=== PATIENT | male | born 1955 | race Caucasian/White ===

== ENCOUNTER → 2018-06-11 | Outpatient (REF) | payer BC ==
[2018-06-11 12:13] LABS: CHOLESTEROL LEVEL 182 MG/DL (<200); CHOLESTEROL RISK RATIO 4.789 (<5); HDL CHOLESTEROL 38 MG/DL (>40); LDL CHOLESTEROL 86 MG/DL (<100); NON-HDL-C 144 MG/DL; TRIGLYCERIDES LEVEL 290 MG/DL (<150)
[2018-06-11 12:19] LABS: ESTIMATED AVERAGE GLUCOSE 154 MG/DL (60-110)
== END ==
LOC: M SFHCCLAY 07:33
DX: E11.9 Type 2 diabetes mellitus without complications (principal); E78.2 Mixed hyperlipidemia
CPT/HCPCS: 84443

== ENCOUNTER → 2018-08-19 | Outpatient (CLI) | payer BC ==
[~2018-08-19] MED LIST: CINN500T PO; CLAR10CA3 PO; DIGO0.25 PO; FISH1000 PO; GLUC750C4 PO; METO1TAB33 PO; MULTCAP PO; NASA1SPR; OMEP20CA3 PO; REDCAP9 PO; VITA10006 PO; VITAD1000T PO; [UNRECOGNIZED DRUG - CODE] PO
--- NOTE | 2018-08-19 11:35 | REP ---
MR LUMBAR SPINE WITHOUT CONTRAST: HISTORY: Back pain. Decreased signal intensity on T2-weighted images is present in the L2-3 through L5-S1 intervertebral discs. The discs are decreased in height. These findings are consistent with disc degeneration. A diffuse disc bulge is present at the L1-2 level. There is minimal compression of the thecal sac. There is hypertrophy of the ligamenta flava and posterior articulating facets. The L1 nerves exit the neural foramina without compression. A diffuse disc bulge and small right paracentral disc extrusion are present at the L2-3 level. There is superior migration of disc material. There is hypertrophy of the ligamenta flava and posterior articulating facets. These findings produce moderate central canal stenosis. The L2 nerves exit the neural foramina without compression. A diffuse disc bulge is present at the L3-4 level. There is hypertrophy of the ligamenta flava and posterior articulating facets. These findings produce moderate central canal stenosis. The L3 nerves exit the neural foramina without compression. A diffuse disc bulge and small central disc protrusion are present at the L4-5 level. There is minimal compression of the thecal sac. There is hypertrophy of the posterior articulating facets. There is compression of the left L4 nerve in the neural foramen. The right L4 nerve exits the neural foramen without compression. A diffuse disc bulge is present at the L5-S1 level. This abuts the thecal sac and S1 nerves. There are 3 mm of retrolisthesis of L5 on S1. There is hypertrophy of the posterior articulating facets. There is compression of the L5 nerves in the neural foramina. The conus medullaris is normal in appearance terminating at the level of the L1-2 intervertebral disc. Increased signal intensity on T2-weighted images is present in the endplates of the L4-S1 vertebral bodies. This represents degenerative change. IMPRESSION: 1. Diffuse disc bulges at the L1-2 level with minimal thecal sac compression. 2. Moderate central canal stenosis at the L2-3 level secondary to disc bulge, disc extrusion, ligamentous, and facet hypertrophy. 3. Moderate central canal stenosis at the L3-4 level secondary to disc bulge, ligamentous, and facet hypertrophy. 4. Diffuse disc bulge and small central disc protrusion at the L4-5 level with minimal thecal sac compression. There is compression of the left L4 nerve in the neural foramen. 5. Diffuse disc bulge at the L5-S1 level. This abuts the thecal sac and S1 nerves. There is compression of the L5 nerves in the neural foramina. Electronically Signed by Reji Davis MD 08/19/2018 11:39 A
== END ==
LOC: M RAD 09:36
PROVIDERS: ATTEND Orthopaedic Surgery
DX: M51.26 Other intervertebral disc displacement, lumbar region (principal); M48.061 Spinal stenosis, lumbar region without neurogenic claudication

== ENCOUNTER → 2018-12-11 | Outpatient (REF) | payer BC ==
[2018-12-11 13:00] LABS: MALB URINE SIEMENS 35.5 MG/L; MAU/CREAT RATIO 14.6 MCG/MG (0.0-30.0)
[2018-12-11 13:04] LABS: HEMOGLOBIN A1c 7.3 %
== END ==
LOC: M SFHCCLAY 09:10
PROVIDERS: ATTEND Family Medicine
DX: E11.9 Type 2 diabetes mellitus without complications (principal); I10 Essential (primary) hypertension

== ENCOUNTER 2019-01-20 07:25 | Day surgery (SDC) | payer BC ==
[~2019-01-20] VITALS: Ht 188 cm; Wt 101.6 kg
[~2019-01-20 07:25] MED LIST changes: +CINN500C15 PO; +GARL500C PO; +GNP1000T11 PO; +KP F1200 PO; +METF500T13 PO; +VITA500C24 PO
[2019-01-20] MEDS ORDERED: NS 1,000 ML IV ONE (08:00)
[2019-01-20] MEDS ORDERED: LIDOCAINE 2% INJ 100 MG/5 ML SDV (FOR ANES.) As Ordered ONE (08:26)
[2019-01-20] MEDS ORDERED: PROPOFOL 500 MG/50 ML VIAL As Ordered ONE (08:26)
--- NOTE | 2019-01-20 08:51 | ROOR ---
Patient Name: Travon Costello Procedure Date: 01/20/2019 8:22 AM Date of : 1955 Age: 63 Room: [facility] Gender: Male Note Status: Finalized Procedure: Colonoscopy Indications: High risk colon cancer surveillance: Personal history of colonic polyps, Last colonoscopy: October 2015 Providers: Rodrigo HALL MD Referring MD: Varun Valdez MD Requesting Provider: Medicines: Monitored Anesthesia Care Complications: No immediate complications. Procedure: Pre-Anesthesia Assessment: - The heart rate, respiratory rate, oxygen saturations, blood pressure, adequacy of pulmonary ventilation, and response to care were monitored throughout the procedure. The Colonoscope was introduced through the anus and advanced to the terminal ileum, with identification of the appendiceal orifice and IC valve. The colonoscopy was performed without difficulty. The patient tolerated the procedure well. The quality of the bowel preparation was good. Findings: The perianal and digital rectal examinations were normal. Two sessile polyps were found in the sigmoid colon. The polyps were diminutive in size. These polyps were removed with a cold snare. Resection and retrieval were complete. Mild sigmoid diverticulosis and moderate internal hemorrhoids. The exam was otherwise without abnormality on direct and retroflexion views. (Exam: Complete, Prep: Good or Excellent.) Impression: - Two diminutive polyps in the sigmoid colon, removed with a cold snare. Resected and retrieved. - Mild sigmoid diverticulosis and moderate internal hemorrhoids. - The colon examination was otherwise normal on direct and retroflexion views. Recommendation: - Repeat colonoscopy in 5 years for surveillance. Rodrigo Hall MD Rodrigo HALL MD 01/20/2019 8:51:04 AM Electronically signed by Rodrigo HALL MD Number of Addenda: 0 Note Initiated On: 01/20/2019 8:22 AM Estimated Blood Loss: Estimated blood loss: none.
[2019-01-20 09:10] VITALS: BP 135/83
== END 2019-01-20 09:17 | disposition home or self-care (01) ==
LOC: M OPP 07:25
PROVIDERS: ATTEND Internal Medicine Gastroenterology
DX: D12.5 Benign neoplasm of sigmoid colon (principal); K63.5 Polyp of colon; K57.30 Diverticulosis of large intestine without perforation or abscess without bleeding; K64.8 Other hemorrhoids; Z86.010 Personal history of colon polyps

== ENCOUNTER → 2020-06-10 | Outpatient (REF) | payer BC ==
[~2020-06-10] MED LIST changes: +CHOL100029 PO; +DIGO0.253 PO; -GARL500C PO; +GARL500C2 PO; +OMEP1CAP73 PO; -OMEP20CA3 PO; -VITAD1000T PO
[2020-06-10 12:06] LABS: HEMATOCRIT 43.1 % (42.0-52.0); HEMOGLOBIN 14.6 g/dl (13.5-17.5); MEAN CORPUSCULAR HGB CONC 33.9 g/dl (32.0-36.5); MEAN CORPUSCULAR VOLUME 94.5 fl (80.0-96.0); PLATELET COUNT, AUTOMATED 139 10^3/uL (150-450); RED BLOOD COUNT 4.56 10^6/uL (4.30-6.10); WHITE BLOOD COUNT 5.1 10^3/uL (4.0-10.0)
[2020-06-10 12:39] LABS: MALB URINE SIEMENS 17.3 MG/L; MAU/CREAT RATIO 10.6 MCG/MG (0.0-30.0)
[2020-06-10 12:44] LABS: ALBUMIN 3.9 GM/DL (3.2-5.2); ALT/SGPT 43 U/L (12-78); BILIRUBIN,TOTAL 0.8 MG/DL (0.2-1.0); BLOOD UREA NITROGEN 16 MG/DL (7-18); CARBON DIOXIDE LEVEL 31 MEQ/L (21-32); CHLORIDE LEVEL 103 MEQ/L (98-107); CHOLESTEROL LEVEL 187 MG/DL (<200); CHOLESTEROL RISK RATIO 3.978 (<5); CREATININE FOR GFR 1.09 MG/DL (0.70-1.30); GLOMERULAR FILTRATION RATE > 60.0 (>49); GLUCOSE, FASTING 131 MG/DL (70-100); HDL CHOLESTEROL 47 MG/DL (>40); LDL CHOLESTEROL 104 MG/DL (<100); NON-HDL-C 140 MG/DL; POTASSIUM SERUM 4.3 MEQ/L (3.5-5.1); SODIUM LEVEL 139 MEQ/L (136-145); TOTAL PROTEIN 7.7 GM/DL (6.4-8.2); TRIGLYCERIDES LEVEL 181 MG/DL (<150)
[2020-06-10 13:31] LABS: HEMOGLOBIN A1c 6.6 %
== END ==
LOC: M SFHCCLAY 08:06
PROVIDERS: ATTEND Family Medicine
DX: D61.818 Other pancytopenia (principal); E78.2 Mixed hyperlipidemia; I47.1 Supraventricular tachycardia; Z12.5 Encounter for screening for malignant neoplasm of prostate; E11.9 Type 2 diabetes mellitus without complications
CPT/HCPCS: 80053; 80061; 80162; 82043; 83036; 85027; G0103

== ENCOUNTER → 2021-07-06 | Outpatient (REF) | payer BC ==
[2021-07-06 11:55] LABS: BASO # 0.1 10^3/uL (0.0-0.2); BASO % 1.1 % (0.0-1.0); EOS # 0.4 10^3/uL (0.0-0.5); EOS % 7.1 % (0.0-3.0); HEMATOCRIT 43.7 % (42.0-52.0); HEMOGLOBIN 14.9 g/dl (13.5-17.5); LYMPH # 2.2 10^3/uL (1.5-5.0); LYMPH % 40.2 % (24.0-44.0); MEAN CORPUSCULAR HEMOGLOBIN 32.3 pg (27.0-33.0); MEAN CORPUSCULAR HGB CONC 34.1 g/dl (32.0-36.5); MEAN CORPUSCULAR VOLUME 94.6 fl (80.0-96.0); MONO # 0.6 10^3/uL (0.0-0.8); MONO % 11.7 % (2.0-8.0); NEUTROPHILS # 2.2 10^3/uL (1.5-8.5); NEUTROPHILS % 39.7 % (36.0-66.0); PLATELET COUNT, AUTOMATED 139 10^3/uL (150-450); RED BLOOD COUNT 4.62 10^6/uL (4.30-6.10); WHITE BLOOD COUNT 5.5 10^3/uL (4.0-10.0)
[2021-07-06 12:39] LABS: ALBUMIN 3.8 GM/DL (3.2-5.2); ALT/SGPT 50 U/L (12-78); BILIRUBIN,TOTAL 0.8 MG/DL (0.2-1.0); BLOOD UREA NITROGEN 15 MG/DL (7-18); CALCIUM LEVEL 9.6 MG/DL (8.8-10.2); CARBON DIOXIDE LEVEL 29 MEQ/L (21-32); CHLORIDE LEVEL 102 MEQ/L (98-107); CHOLESTEROL LEVEL 179 MG/DL (<200); CHOLESTEROL RISK RATIO 4.162 (<5); CREATININE FOR GFR 1.21 MG/DL (0.70-1.30); GLOMERULAR FILTRATION RATE > 60.0 (>49); GLUCOSE, FASTING 152 MG/DL (70-100); HDL CHOLESTEROL 43 MG/DL (>40); LDL CHOLESTEROL 99 MG/DL (<100); NON-HDL-C 136 MG/DL; POTASSIUM SERUM 4.6 MEQ/L (3.5-5.1); SODIUM LEVEL 138 MEQ/L (136-145); TOTAL PROTEIN 7.9 GM/DL (6.4-8.2); TRIGLYCERIDES LEVEL 185 MG/DL (<150)
[2021-07-06 12:52] LABS: MALB URINE SIEMENS 35.4 MG/L; MAU/CREAT RATIO 12.8 MCG/MG (0.0-30.0)
[2021-07-06 14:43] LABS: DIGOXIN LEVEL 1.4 NG/ML (0.5-2.0)
== END ==
LOC: M SFHCCLAY 07:33
PROVIDERS: ATTEND Family Medicine
DX: D61.818 Other pancytopenia (principal); I10 Essential (primary) hypertension; E78.2 Mixed hyperlipidemia; I47.1 Supraventricular tachycardia; Z12.5 Encounter for screening for malignant neoplasm of prostate; E11.9 Type 2 diabetes mellitus without complications
CPT/HCPCS: 80053; 80061; 80162; 82043; 83036; 85025; G0103

== ENCOUNTER 2021-07-13 12:26 | Emergency (ER) | payer BC ==
[~2021-07-13] VITALS: Ht 188 cm; Wt 101.8 kg
[2021-07-13 13:03] LABS: HEMATOCRIT 41.5 % (42.0-52.0); HEMOGLOBIN 14.5 g/dl (13.5-17.5); MEAN CORPUSCULAR HEMOGLOBIN 32.4 pg (27.0-33.0); MEAN CORPUSCULAR HGB CONC 34.9 g/dl (32.0-36.5); MEAN CORPUSCULAR VOLUME 92.6 fl (80.0-96.0); PLATELET COUNT, AUTOMATED 141 10^3/uL (150-450); RED BLOOD COUNT 4.48 10^6/uL (4.30-6.10); WHITE BLOOD COUNT 6.2 10^3/uL (4.0-10.0)
[2021-07-13] MEDS ORDERED: BENA1TAB24 (13:06)
--- NOTE | 2021-07-13 13:07 | REP ---
INDICATION: palpaitaions. COMPARISON: 01/23/2013 the latest prior TECHNIQUE: Portable FINDINGS: The technique utilized in obtaining the radiograph has magnified the cardiac silhouette and accentuated the interstitial markings. The cardiomediastinal silhouette lung león are unchanged. The heart is not enlarged. The lung león are clear. The pleural angles are sharp. The osseous structures are stable and intact. IMPRESSION: No acute cardiopulmonary disease. <Electronically signed by Cristiano Mendez > 07/13/21 [id number]
[2021-07-13 14:27] LABS: BLOOD UREA NITROGEN 12 MG/DL (7-18); CALCIUM LEVEL 9.1 MG/DL (8.8-10.2); CARBON DIOXIDE LEVEL 26 MEQ/L (21-32); CHLORIDE LEVEL 107 MEQ/L (98-107); CREATININE FOR GFR 1.17 MG/DL (0.70-1.30); DIGOXIN LEVEL 0.7 NG/ML (0.5-2.0); FREE THYROXINE INDEX 3.6 % (1.4-3.8); GLOMERULAR FILTRATION RATE > 60.0 (>49); GLUCOSE, FASTING 188 MG/DL (70-100); SODIUM LEVEL 140 MEQ/L (136-145); T UPTAKE 36 % (33-40); THYROID STIMULATING HORMONE 0.372 uIU/ML (0.358-3.740); THYROXINE (T4) 9.9 UG/DL (4.5-12.0)
[2021-07-13] MEDS ORDERED: atenoloL 25 MG TAB PO ONE ×2 (14:30→16:20)
[2021-07-13] MEDS ORDERED: ATEN50TA2 PO (16:24)
[2021-07-13 17:43] VITALS: BP 140/86
[2021-07-13 17:46] VITALS: BP 140/86
--- NOTE | 2021-07-14 07:48 | ECGEPIP ---
[facility] - ED Test Date: 2021-07-13 Pat Name: SIMONE FERRER Department: Room: - Gender: Male [employer] Tender: RAKEL : 1955 Requested By: Hillary Katz Order Number: [id number] Reading MD: Devan Paulson Measurements Intervals Oblong Rate: 115 P: 40 IN: 176 QRS: 8 QRSD: 92 T: 6 QT: 328 QTc: 453 Interpretive Statements Sinus tachycardia POOR R WAVE PROGRESSION NO PRIORS FOR COMPARISON Electronically Signed on 07-14-2021 7:48:44 EST by Devan Paulson
== END 2021-07-13 17:50 | disposition home or self-care (01) ==
LOC: M ED 12:26 → EDBD 12:26 → M ED 17:50
DX: I47.9 Paroxysmal tachycardia, unspecified (principal); K21.9 Gastro-esophageal reflux disease without esophagitis; Z88.0 Allergy status to penicillin; Z79.899 Other long term (current) drug therapy

== ENCOUNTER → 2021-11-20 | Outpatient (REF) | payer BC ==
[~2021-11-20] MED LIST changes: +ATEN50TA2 PO; +BENA1TAB24
[2021-11-20 16:35] LABS: ALBUMIN 3.9 GM/DL (3.2-5.2); BLOOD UREA NITROGEN 18 MG/DL (7-18); CALCIUM LEVEL 9.9 MG/DL (8.8-10.2); CARBON DIOXIDE LEVEL 32 MEQ/L (21-32); CHLORIDE LEVEL 101 MEQ/L (98-107); CREATININE FOR GFR 1.25 MG/DL (0.70-1.30); GLOMERULAR FILTRATION RATE > 60.0 (>49); GLUCOSE, FASTING 291 MG/DL (70-100); PHOSPHORUS LEVEL 2.6 MG/DL (2.5-4.9); POTASSIUM SERUM 4.2 MEQ/L (3.5-5.1); SODIUM LEVEL 137 MEQ/L (136-145)
== END ==
LOC: M LABDRAWC 15:32
PROVIDERS: ATTEND Internal Medicine Cardiovascular Disease
DX: I11.9 Hypertensive heart disease without heart failure (principal)

== ENCOUNTER 2021-11-27 06:31 | Inpatient (IN) | payer BC ==
[~2021-11-27] VITALS: Ht 188 cm; Wt 102.7 kg
[~2021-11-27 06:31] MED LIST changes: -BENA1TAB24; +BENA1TAB24 PO; -NASA1SPR; +NASA1SPR NARES
[2021-11-27] MEDS ORDERED: ACETAMINOPHEN TAB 650MG DOSE (2X325MG) PO ONE (07:30)
[2021-11-27] MEDS ORDERED: ONDANSETRON 4MG/2ML VIAL IV ONE ×2 (07:40→13:30)
[2021-11-27] MEDS ORDERED: NS 1,000 ML IV ONE (07:40)
[2021-11-27] MEDS ORDERED: ONDANSETRON 4MG/2ML VIAL As Ordered ONE (07:41)
[2021-11-27] MEDS ORDERED: SPIR-10 PO (07:50)
[2021-11-27] MEDS ORDERED: CHLO125TA PO (07:51)
[2021-11-27] MEDS: MORPHINE 4 MG/ML 1ML VIAL/SYRINGE IV PRN ×4 (08:07→20:08)
[2021-11-27 08:23] LABS: BASO % 0.4 % (0.0-1.0); EOS # 0.1 10^3/uL (0.0-0.5); EOS % 0.6 % (0.0-3.0); HEMOGLOBIN 14.8 g/dl (13.5-17.5); LYMPH # 1.3 10^3/uL (1.5-5.0); LYMPH % 11.5 % (24.0-44.0); MEAN CORPUSCULAR HEMOGLOBIN 31.8 pg (27.0-33.0); MEAN CORPUSCULAR HGB CONC 36.1 g/dl (32.0-36.5); MONO # 0.3 10^3/uL (0.0-0.8); MONO % 2.6 % (2.0-8.0); NEUTROPHILS # 9.2 10^3/uL (1.5-8.5); NEUTROPHILS % 84.2 % (36.0-66.0); PLATELET COUNT, AUTOMATED 119 10^3/uL (150-450); RED BLOOD COUNT 4.66 10^6/uL (4.30-6.10); WHITE BLOOD COUNT 10.9 10^3/uL (4.0-10.0)
[2021-11-27 08:24] LABS: ABG BASE EXCESS -1.9 (-2.0-2.0); ABG O2 SATURATION 95.8 % (95.0-99.0); ABG PARTIAL PRESSURE CO2 39.9 mmHg (35.0-45.0); ABG PARTIAL PRESSURE O2 82.9 mmHg (75.0-100.0); ABG STANDARD HCO3 22.9 MEQ/L (22.0-26.0); ABG TOTAL CO2 24.2 MEQ/L (23.0-31.0); ABG pH (ARTERIAL) 7.379 UNITS (7.350-7.450)
[2021-11-27 08:35] LABS: INR 0.95; PROTHROMBIN TIME 13.1 SECONDS (12.7-14.5)
[2021-11-27 08:36] LABS: PARTIAL THROMBOPLASTIN TIME 21.8 SECONDS (25.9-37.0)
[2021-11-27 08:41] LABS: ALBUMIN 3.7 GM/DL (3.2-5.2); ALT/SGPT 85 U/L (12-78); AMYLASE 42 U/L (25-115); BILIRUBIN,DIRECT 0.5 MG/DL (0.0-0.2); BILIRUBIN,TOTAL 1.1 MG/DL (0.2-1.0); BLOOD UREA NITROGEN 18 MG/DL (7-18); C REACTIVE PROTEIN QUANTITATIV 4.46 MG/DL (0.00-0.30); CALCIUM LEVEL 9.2 MG/DL (8.8-10.2); CARBON DIOXIDE LEVEL 26 MEQ/L (21-32); CHLORIDE LEVEL 101 MEQ/L (98-107); CREATININE FOR GFR 1.26 MG/DL (0.70-1.30); GLOMERULAR FILTRATION RATE > 60.0 (>49); GLUCOSE, FASTING 285 MG/DL (70-100); POTASSIUM SERUM 4.5 MEQ/L (3.5-5.1); SODIUM LEVEL 136 MEQ/L (136-145); TOTAL PROTEIN 7.7 GM/DL (6.4-8.2)
[2021-11-27 08:47] LABS: ERYTHROCYTE SEDIMENTATION RATE 31 mm/hr (0-20)
[2021-11-27] MEDS: VITAMIN D 1,000 INTERNATIONAL UNITS TABLET PO SCH (09:00)
[2021-11-27] MEDS: LORATADINE 10 MG TAB PO SCH (09:00)
[2021-11-27] MEDS: ASCORBIC ACID 500 MG TAB PO SCH (09:00)
[2021-11-27] MEDS: ENOXAPARIN 40MG/0.4ML SYRINGE (J1650 PER 10MG) SC SCH (09:00)
[2021-11-27] MEDS ORDERED: LevoFLOXacin IV 750 MG in IV 1 EA IV ONE (09:00)
[2021-11-27] MEDS ORDERED: NS IV ONE (09:00)
[2021-11-27] MEDS: MULTIVITAMINS/MINERALS THERAP 1 TAB PO SCH (09:00)
[2021-11-27 09:03] LABS: RSV AMPLIFICATION NEGATIVE (NEGATIVE)
[2021-11-27] MEDS ORDERED: ISOVUE-370 76% 100ML VIAL As Ordered ONE (09:27)
[2021-11-27 11:20] LABS: APPEARANCE, URINE HAZY (CLEAR); BACTERIA, URINE AUTO NEGATIVE (NEGATIVE); BILIRUBIN, URINE AUTO NEGATIVE (NEGATIVE); BLOOD, URINE BLOOD NEGATIVE (NEGATIVE); COLOR, URINE YELLOW (YELLOW); GLUCOSE, URINE (UA) AUTO 3+ mg/dL (NEGATIVE); KETONE, URINE AUTO TRACE mg/dL (NEGATIVE); LEUKOCYTE ESTERASE, URINE AUTO NEGATIVE (NEGATIVE); MUCUS, URINE LARGE (NEGATIVE); NITRITE, URINE AUTO NEGATIVE (NEGATIVE); PROTEIN, URINE AUTO 1+ mg/dL (NEGATIVE); RBC, URINE AUTO 6 /HPF (0-3); SQUAMOUS EPITHELIAL CELL UR AU 0 /HPF (0-6); UROBILINOGEN, URINE AUTO 0.2 mg/dL (0.0-2.0); WBC, URINE AUTO 2 /HPF (0-3)
[2021-11-27] MEDS ORDERED: PROHANCE 279.3MG/ML 15ML VIAL As Ordered ONE (12:34)
[2021-11-27] MEDS ORDERED: PROHANCE 279.3MG/ML 5ML VIAL As Ordered ONE (12:34)
[2021-11-27] MEDS ORDERED: ATEN50TA2 PO (14:17)
[2021-11-27] MEDS ORDERED: VITMTA PO (14:21)
[2021-11-27] MEDS ORDERED: VITA100093 PO (14:24)
[2021-11-27] MEDS ORDERED: HOME MED LIST COMPLETE! XX SCH (14:30)
[2021-11-27] MEDS ORDERED: GLUCAGON INJ 1MG VIAL SC PRN (16:20)
[2021-11-27] MEDS ORDERED: DEXTROSE 50% 50 ML SYRINGE IV PRN (16:20)
[2021-11-27] MEDS ORDERED: GLUCOSE 4GM CHEW TABLET PO PRN (16:20)
[2021-11-27] MEDS: oxyCODONE 5MG TAB PO PRN (16:32)
[2021-11-27] MEDS: traMADol 50 MG TAB PO PRN (17:36)
[2021-11-27] MEDS: NS 1,000 ML IV SCH (18:55)
[2021-11-27] MEDS: CYCLOBENZAPRINE 5MG TABLET PO PRN (18:56)
[2021-11-27 19:14] LABS: LDH LACTATE DEHYDROGENASE 165 U/L (87-241); RHEUMATOID FACTOR QUANT 15.1 IU/ML (<15.0); TOTAL PROTEIN 6.8 GM/DL (6.4-8.2)
[2021-11-27] MEDS: ACETAMINOPHEN TAB 650MG DOSE (2X325MG) PO SCH (20:07)
[2021-11-27] MEDS: HumaLOG INSULIN (NovoLOG) PER UNIT SC SCH ×2 (20:09→20:58)
[2021-11-27] MEDS: DIGOXIN 0.25 MG TAB PO SCH (21:02)
[2021-11-27] MEDS: OMEPRAZOLE 20MG CAP PO SCH (21:02)
[2021-11-27] MEDS: atenoloL 50 MG TAB PO SCH (21:02)
[2021-11-28 00:55] VITALS: BP 140/73
[2021-11-28] MEDS: ACETAMINOPHEN TAB 650MG DOSE (2X325MG) PO SCH ×5 (01:09→23:07)
[2021-11-28] MEDS: oxyCODONE 5MG TAB PO PRN ×2 (01:09→14:22)
[2021-11-28] MEDS: NS 1,000 ML IV SCH ×2 (04:40→13:08)
[2021-11-28] MEDS: PERCOCET 5MG/325MG TAB PO PRN (04:41)
[2021-11-28 05:45] VITALS: BP 132/72
[2021-11-28 06:39] LABS: ALT/SGPT 76 U/L (12-78); BILIRUBIN,TOTAL 1.2 MG/DL (0.2-1.0); BLOOD UREA NITROGEN 14 MG/DL (7-18); CARBON DIOXIDE LEVEL 27 MEQ/L (21-32); CHLORIDE LEVEL 101 MEQ/L (98-107); CREATININE FOR GFR 0.96 MG/DL (0.70-1.30); GLOMERULAR FILTRATION RATE > 60.0 (>49); GLUCOSE, FASTING 197 MG/DL (70-100); POTASSIUM SERUM 3.8 MEQ/L (3.5-5.1); SODIUM LEVEL 136 MEQ/L (136-145); TOTAL PROTEIN 6.3 GM/DL (6.4-8.2)
[2021-11-28] MEDS: OMEPRAZOLE 20MG CAP PO SCH ×2 (08:29→20:25)
[2021-11-28] MEDS: ASCORBIC ACID 500 MG TAB PO SCH (08:29)
[2021-11-28] MEDS: LIDOCAINE 5% (LIDODERM) PATCH TD SCH (08:29)
[2021-11-28] MEDS: MULTIVITAMINS/MINERALS THERAP 1 TAB PO SCH (08:29)
[2021-11-28] MEDS: LORATADINE 10 MG TAB PO SCH (08:29)
[2021-11-28] MEDS: VITAMIN D 1,000 INTERNATIONAL UNITS TABLET PO SCH (08:30)
[2021-11-28] MEDS: HumaLOG INSULIN (NovoLOG) PER UNIT SC SCH ×4 (08:32→21:00)
[2021-11-28] MEDS: ENOXAPARIN 40MG/0.4ML SYRINGE (J1650 PER 10MG) SC SCH (09:00)
[2021-11-28 10:20] LABS: ALBUMIN 3.66 GM/DL (3.29-5.55); ALBUMIN % 53.8 % (55.8-66.1); ALPHA-1-GLOBULIN % 4.6 % (2.9-4.9); ALPHA-1-GLOBULINS 0.31 GM/DL (0.17-0.41); ALPHA-2-GLOBULINS 0.74 GM/DL (0.42-0.99); ALPHA-2-GLOBULINS % 10.5 % (7.1-11.8); BETA-1-GLOBULINS 0.58 GM/DL (0.28-0.60); BETA-1-GLOBULINS % 8.5 % (4.7-7.2); BETA-2-GLOBULINS 0.51 GM/DL (0.19-0.55); BETA-2-GLOBULINS % 7.5 % (3.2-6.5); GAMMA GLOBULIN % 15.1 % (11.1-18.8); GAMMA GLOBULINS 1.03 GM/DL (0.65-1.58)
[2021-11-28] MEDS ORDERED: VANCOMYCIN HCL 1,000 MG, VIAL MATE ADAPTER 1 EACH in NS 250 ML IV ONE ×2 (11:00→12:00)
[2021-11-28 11:03] LABS: HEMATOCRIT 35.3 % (42.0-52.0); HEMOGLOBIN 12.2 g/dl (13.5-17.5); MEAN CORPUSCULAR HEMOGLOBIN 31.4 pg (27.0-33.0); MEAN CORPUSCULAR HGB CONC 34.6 g/dl (32.0-36.5); RED BLOOD COUNT 3.88 10^6/uL (4.30-6.10); WHITE BLOOD COUNT 12.3 10^3/uL (4.0-10.0)
[2021-11-28 11:05] LABS: PLATELET COUNT, AUTOMATED 93 10^3/uL (150-450)
[2021-11-28 14:00] VITALS: BP 132/72
[2021-11-28] MEDS: traMADol 50 MG TAB PO PRN ×3 (16:06→17:09)
[2021-11-28] MEDS: CYCLOBENZAPRINE 5MG TABLET PO PRN (17:42)
[2021-11-28 19:30] VITALS: BP 118/68
[2021-11-28] MEDS: VANCOMYCIN HCL 750 MG, VIAL MATE ADAPTER 1 EACH in NS 250 ML IV SCH (20:25)
[2021-11-28] MEDS: DIGOXIN 0.25 MG TAB PO SCH (20:27)
[2021-11-28] MEDS: **NOTE PATIENT COMMENT** MISC XX SCH (20:27)
[2021-11-28] MEDS: atenoloL 50 MG TAB PO SCH (20:27)
[2021-11-29] MEDS: traMADol 50 MG TAB PO PRN (01:42)
[2021-11-29] MEDS ORDERED: MOM 30ML SUSPENSION UDC PO PRN (02:25)
[2021-11-29] MEDS ORDERED: DOCUSATE SODIUM 100MG CAPSULE PO PRN (02:25)
[2021-11-29] MEDS ORDERED: MIRALAX *UNIT DOSE* 17GM PACKET PO PRN (02:25)
[2021-11-29] MEDS: VANCOMYCIN HCL 750 MG, VIAL MATE ADAPTER 1 EACH in NS 250 ML IV SCH (03:47)
[2021-11-29] MEDS ORDERED: ONDANSETRON 4MG ORAL DISINTEGRATING TAB PO PRN (04:00)
[2021-11-29] MEDS: ACETAMINOPHEN TAB 650MG DOSE (2X325MG) PO SCH ×4 (05:07→23:07)
[2021-11-29 05:20] VITALS: BP 134/74
[2021-11-29 07:03] LABS: HEMATOCRIT 35.7 % (42.0-52.0); HEMOGLOBIN 12.5 g/dl (13.5-17.5); MEAN CORPUSCULAR HEMOGLOBIN 31.3 pg (27.0-33.0); MEAN CORPUSCULAR VOLUME 89.5 fl (80.0-96.0); RED BLOOD COUNT 3.99 10^6/uL (4.30-6.10); WHITE BLOOD COUNT 10.5 10^3/uL (4.0-10.0)
[2021-11-29 07:06] LABS: PLATELET COUNT, AUTOMATED 86 10^3/uL (150-450)
[2021-11-29 07:33] LABS: ALBUMIN 2.6 GM/DL (3.2-5.2); ALT/SGPT 66 U/L (12-78); BILIRUBIN,TOTAL 0.9 MG/DL (0.2-1.0); BLOOD UREA NITROGEN 11 MG/DL (7-18); CARBON DIOXIDE LEVEL 28 MEQ/L (21-32); CHLORIDE LEVEL 101 MEQ/L (98-107); CREATININE FOR GFR 0.83 MG/DL (0.70-1.30); GLOMERULAR FILTRATION RATE > 60.0 (>49); GLUCOSE, FASTING 199 MG/DL (70-100); SODIUM LEVEL 135 MEQ/L (136-145); TOTAL PROTEIN 6.1 GM/DL (6.4-8.2)
[2021-11-29] MEDS ORDERED: cefTRIAXone SOD 2 GM in D5W MINI-BAG PLUS 50 ML IV SCH (08:35)
[2021-11-29] MEDS ORDERED: ENOXAPARIN 40MG/0.4ML SYRINGE (J1650 PER 10MG) SC SCH (09:00)
[2021-11-29] MEDS: OMEPRAZOLE 20MG CAP PO SCH ×2 (09:05→19:59)
[2021-11-29] MEDS: MULTIVITAMINS/MINERALS THERAP 1 TAB PO SCH (09:05)
[2021-11-29] MEDS: cefTRIAXone SOD 2 GM in D5W MINI-BAG PLUS 50 ML IV SCH ×2 (09:06→20:00)
[2021-11-29] MEDS: LORATADINE 10 MG TAB PO SCH (09:06)
[2021-11-29] MEDS: ASCORBIC ACID 500 MG TAB PO SCH (09:06)
[2021-11-29] MEDS: VITAMIN D 1,000 INTERNATIONAL UNITS TABLET PO SCH (09:06)
[2021-11-29] MEDS: HumaLOG INSULIN (NovoLOG) PER UNIT SC SCH ×4 (09:07→19:59)
[2021-11-29] MEDS: LIDOCAINE 5% (LIDODERM) PATCH TD SCH (09:10)
[2021-11-29 14:00] VITALS: BP 148/76
[2021-11-29] MEDS: oxyCODONE 5MG TAB PO PRN (16:38)
[2021-11-29] MEDS: DIGOXIN 0.25 MG TAB PO SCH (19:59)
[2021-11-29] MEDS: atenoloL 50 MG TAB PO SCH (19:59)
[2021-11-29] MEDS: **NOTE PATIENT COMMENT** MISC XX SCH (20:02)
[2021-11-29 22:00] VITALS: BP 126/69
[2021-11-30 04:54] VITALS: BP 133/74
[2021-11-30] MEDS: ACETAMINOPHEN TAB 650MG DOSE (2X325MG) PO SCH ×4 (05:05→23:57)
[2021-11-30 06:50] LABS: HEMATOCRIT 33.7 % (42.0-52.0); HEMOGLOBIN 11.9 g/dl (13.5-17.5); MEAN CORPUSCULAR HEMOGLOBIN 31.9 pg (27.0-33.0); MEAN CORPUSCULAR HGB CONC 35.3 g/dl (32.0-36.5); MEAN CORPUSCULAR VOLUME 90.3 fl (80.0-96.0); RED BLOOD COUNT 3.73 10^6/uL (4.30-6.10); WHITE BLOOD COUNT 8.5 10^3/uL (4.0-10.0)
[2021-11-30 06:52] LABS: PLATELET COUNT, AUTOMATED 98 10^3/uL (150-450)
[2021-11-30 07:24] LABS: ALBUMIN 2.6 GM/DL (3.2-5.2); ALT/SGPT 52 U/L (12-78); BILIRUBIN,TOTAL 0.7 MG/DL (0.2-1.0); BLOOD UREA NITROGEN 12 MG/DL (7-18); CALCIUM LEVEL 8.6 MG/DL (8.8-10.2); CARBON DIOXIDE LEVEL 31 MEQ/L (21-32); CHLORIDE LEVEL 101 MEQ/L (98-107); CREATININE FOR GFR 0.85 MG/DL (0.70-1.30); GLOMERULAR FILTRATION RATE > 60.0 (>49); GLUCOSE, FASTING 184 MG/DL (70-100); POTASSIUM SERUM 3.5 MEQ/L (3.5-5.1); SODIUM LEVEL 138 MEQ/L (136-145); TOTAL PROTEIN 6.2 GM/DL (6.4-8.2)
[2021-11-30] MEDS: VITAMIN D 1,000 INTERNATIONAL UNITS TABLET PO SCH (09:13)
[2021-11-30] MEDS: LIDOCAINE 5% (LIDODERM) PATCH TD SCH (09:13)
[2021-11-30] MEDS: cefTRIAXone SOD 2 GM in D5W MINI-BAG PLUS 50 ML IV SCH ×2 (09:13→21:56)
[2021-11-30] MEDS: OMEPRAZOLE 20MG CAP PO SCH ×2 (09:14→21:55)
[2021-11-30] MEDS: HumaLOG INSULIN (NovoLOG) PER UNIT SC SCH ×4 (09:14→21:55)
[2021-11-30] MEDS: LORATADINE 10 MG TAB PO SCH (09:14)
[2021-11-30] MEDS: ASCORBIC ACID 500 MG TAB PO SCH (09:14)
[2021-11-30] MEDS: MULTIVITAMINS/MINERALS THERAP 1 TAB PO SCH (09:14)
[2021-11-30] MEDS: PERCOCET 5MG/325MG TAB PO PRN ×2 (09:15→21:56)
[2021-11-30] MEDS: oxyCODONE 5MG TAB PO PRN (13:53)
[2021-11-30 14:00] VITALS: BP 132/69
[2021-11-30 17:08] LABS: ANA (HEP2) Negative (.); ANCA-ATYPICAL <1:20 titer (Neg:<1:20); CYTOPLASMIC NEUTROP AB ANCA-C <1:20 titer (Neg:<1:20); FUNGITELL, SERUM <31 pg/mL (<80); PERINUCLEAR AB ANCA-P <1:20 titer (Neg:<1:20)
[2021-11-30 17:37] LABS: IMMUNOGLOBULIN G 931 MG/DL (681-1648); IMMUNOGLOBULIN M 30.6 MG/DL (40-230)
[2021-11-30] MEDS ORDERED: FUROSEMIDE 20MG/2ML VIAL (J1940) IV ONE (18:00)
[2021-11-30 18:32] LABS: HEPATITIS C VIRUS ABY INDEX 0.2 INDEX (<0.8)
[2021-11-30 18:33] LABS: HIV 1&2 SCREEN CENTAUR NEGATIVE (NEGATIVE)
[2021-11-30 19:03] VITALS: BP 146/73
[2021-11-30] MEDS: **NOTE PATIENT COMMENT** MISC XX SCH (21:57)
[2021-11-30] MEDS: atenoloL 50 MG TAB PO SCH (21:57)
[2021-11-30] MEDS: DIGOXIN 0.25 MG TAB PO SCH (21:57)
[2021-12-01] MEDS: PERCOCET 5MG/325MG TAB PO PRN (04:20)
[2021-12-01] MEDS: ACETAMINOPHEN TAB 650MG DOSE (2X325MG) PO SCH ×4 (05:26→23:27)
[2021-12-01 06:00] VITALS: BP 167/80
[2021-12-01 06:00] LABS: HEMATOCRIT 34.8 % (42.0-52.0); HEMOGLOBIN 12.4 g/dl (13.5-17.5); MEAN CORPUSCULAR HEMOGLOBIN 32.2 pg (27.0-33.0); MEAN CORPUSCULAR HGB CONC 35.6 g/dl (32.0-36.5); MEAN CORPUSCULAR VOLUME 90.4 fl (80.0-96.0); PLATELET COUNT, AUTOMATED 118 10^3/uL (150-450); RED BLOOD COUNT 3.85 10^6/uL (4.30-6.10); WHITE BLOOD COUNT 8.1 10^3/uL (4.0-10.0)
[2021-12-01 06:22] LABS: ERYTHROCYTE SEDIMENTATION RATE 64 mm/hr (0-20)
[2021-12-01 06:26] LABS: ALBUMIN 2.5 GM/DL (3.2-5.2); ALT/SGPT 51 U/L (12-78); BILIRUBIN,TOTAL 0.7 MG/DL (0.2-1.0); BLOOD UREA NITROGEN 13 MG/DL (7-18); CALCIUM LEVEL 8.3 MG/DL (8.8-10.2); CARBON DIOXIDE LEVEL 33 MEQ/L (21-32); CHLORIDE LEVEL 102 MEQ/L (98-107); CREATININE FOR GFR 0.86 MG/DL (0.70-1.30); GLOMERULAR FILTRATION RATE > 60.0 (>49); GLUCOSE, FASTING 179 MG/DL (70-100); POTASSIUM SERUM 3.5 MEQ/L (3.5-5.1); SODIUM LEVEL 138 MEQ/L (136-145); TOTAL PROTEIN 6.5 GM/DL (6.4-8.2)
[2021-12-01] MEDS: ASCORBIC ACID 500 MG TAB PO SCH (08:54)
[2021-12-01] MEDS: LORATADINE 10 MG TAB PO SCH (08:54)
[2021-12-01] MEDS: MULTIVITAMINS/MINERALS THERAP 1 TAB PO SCH (08:54)
[2021-12-01] MEDS: OMEPRAZOLE 20MG CAP PO SCH ×2 (08:54→20:02)
[2021-12-01] MEDS: HumaLOG INSULIN (NovoLOG) PER UNIT SC SCH ×4 (08:54→19:55)
[2021-12-01] MEDS: VITAMIN D 1,000 INTERNATIONAL UNITS TABLET PO SCH (08:54)
[2021-12-01] MEDS: LIDOCAINE 5% (LIDODERM) PATCH TD SCH (08:56)
[2021-12-01] MEDS: cefTRIAXone SOD 2 GM in D5W MINI-BAG PLUS 50 ML IV SCH ×2 (08:56→20:07)
[2021-12-01] MEDS ORDERED: LIDOCAINE 1% MDV 20ML VIAL As Ordered ONE (09:36)
[2021-12-01 10:45] VITALS: BP 158/83
[2021-12-01] MEDS: CYCLOBENZAPRINE 5MG TABLET PO PRN ×2 (11:33→18:23)
[2021-12-01] MEDS: oxyCODONE 5MG TAB PO PRN ×2 (11:35→18:25)
[2021-12-01] MEDS: ENOXAPARIN 40MG/0.4ML SYRINGE (J1650 PER 10MG) SC SCH (11:36)
[2021-12-01 14:00] VITALS: BP 132/65
[2021-12-01] MEDS: SODIUM CHLORIDE 0.9% INJ 10 ML SYR IV SCH (18:23)
[2021-12-01] MEDS: **NOTE PATIENT COMMENT** MISC XX SCH (19:55)
[2021-12-01] MEDS: atenoloL 50 MG TAB PO SCH (20:02)
[2021-12-01] MEDS: DOCUSATE SODIUM 100MG CAPSULE PO SCH (20:02)
[2021-12-01] MEDS: DIGOXIN 0.25 MG TAB PO SCH (20:02)
[2021-12-01 22:00] VITALS: BP 153/63
[2021-12-02] MEDS: oxyCODONE 5MG TAB PO PRN ×3 (00:49→15:38)
[2021-12-02 05:06] VITALS: BP 161/83
[2021-12-02] MEDS: ACETAMINOPHEN TAB 650MG DOSE (2X325MG) PO SCH ×4 (05:11→23:17)
[2021-12-02] MEDS: SODIUM CHLORIDE 0.9% INJ 10 ML SYR IV SCH ×2 (05:14→18:07)
[2021-12-02] MEDS: CYCLOBENZAPRINE 5MG TABLET PO PRN ×3 (05:14→22:17)
[2021-12-02] MEDS: PERCOCET 5MG/325MG TAB PO PRN ×2 (05:15→22:17)
[2021-12-02 06:48] LABS: HEMATOCRIT 35.8 % (42.0-52.0); HEMOGLOBIN 12.7 g/dl (13.5-17.5); MEAN CORPUSCULAR HEMOGLOBIN 31.9 pg (27.0-33.0); MEAN CORPUSCULAR HGB CONC 35.5 g/dl (32.0-36.5); MEAN CORPUSCULAR VOLUME 89.9 fl (80.0-96.0); PLATELET COUNT, AUTOMATED 146 10^3/uL (150-450); RED BLOOD COUNT 3.98 10^6/uL (4.30-6.10); WHITE BLOOD COUNT 7.1 10^3/uL (4.0-10.0)
[2021-12-02 07:19] LABS: ALBUMIN 2.6 GM/DL (3.2-5.2); ALT/SGPT 48 U/L (12-78); BILIRUBIN,TOTAL 0.9 MG/DL (0.2-1.0); BLOOD UREA NITROGEN 13 MG/DL (7-18); CALCIUM LEVEL 8.4 MG/DL (8.8-10.2); CARBON DIOXIDE LEVEL 31 MEQ/L (21-32); CHLORIDE LEVEL 99 MEQ/L (98-107); CREATININE FOR GFR 0.85 MG/DL (0.70-1.30); GLOMERULAR FILTRATION RATE > 60.0 (>49); GLUCOSE, FASTING 178 MG/DL (70-100); POTASSIUM SERUM 3.3 MEQ/L (3.5-5.1); SODIUM LEVEL 137 MEQ/L (136-145); TOTAL PROTEIN 6.7 GM/DL (6.4-8.2)
[2021-12-02] MEDS ORDERED: POTASSIUM CHLORIDE 10MEQ SR TABLET PO ONE (07:30)
[2021-12-02] MEDS: MULTIVITAMINS/MINERALS THERAP 1 TAB PO SCH (08:19)
[2021-12-02] MEDS: ASCORBIC ACID 500 MG TAB PO SCH (08:19)
[2021-12-02] MEDS: LORATADINE 10 MG TAB PO SCH (08:19)
[2021-12-02] MEDS: DOCUSATE SODIUM 100MG CAPSULE PO SCH ×2 (08:19→20:27)
[2021-12-02] MEDS: OMEPRAZOLE 20MG CAP PO SCH ×2 (08:19→20:27)
[2021-12-02] MEDS: LIDOCAINE 5% (LIDODERM) PATCH TD SCH (08:20)
[2021-12-02] MEDS: HumaLOG INSULIN (NovoLOG) PER UNIT SC SCH ×4 (08:20→20:13)
[2021-12-02] MEDS: VITAMIN D 1,000 INTERNATIONAL UNITS TABLET PO SCH (08:21)
[2021-12-02] MEDS: cefTRIAXone SOD 2 GM in D5W MINI-BAG PLUS 50 ML IV SCH ×2 (08:21→20:30)
[2021-12-02] MEDS: ENOXAPARIN 40MG/0.4ML SYRINGE (J1650 PER 10MG) SC SCH (08:22)
[2021-12-02 08:46] VITALS: BP 162/82
[2021-12-02] MEDS: BENAZEPRIL 5MG TAB PO SCH (10:36)
[2021-12-02 14:00] VITALS: BP 147/84
[2021-12-02] MEDS: DIGOXIN 0.25 MG TAB PO SCH (20:27)
[2021-12-02] MEDS: atenoloL 50 MG TAB PO SCH (20:30)
[2021-12-02] MEDS: **NOTE PATIENT COMMENT** MISC XX SCH (20:30)
[2021-12-02 22:00] VITALS: BP 163/82
[2021-12-03] MEDS: oxyCODONE 5MG TAB PO PRN (04:14)
[2021-12-03] MEDS: CYCLOBENZAPRINE 5MG TABLET PO PRN (04:18)
[2021-12-03] MEDS: ACETAMINOPHEN TAB 650MG DOSE (2X325MG) PO SCH ×3 (05:12→18:11)
[2021-12-03] MEDS: SODIUM CHLORIDE 0.9% INJ 10 ML SYR IV SCH ×2 (05:12→18:11)
[2021-12-03 06:00] VITALS: BP 172/87
[2021-12-03 06:39] LABS: HEMOGLOBIN 12.8 g/dl (13.5-17.5); MEAN CORPUSCULAR HEMOGLOBIN 31.3 pg (27.0-33.0); MEAN CORPUSCULAR HGB CONC 35.6 g/dl (32.0-36.5); PLATELET COUNT, AUTOMATED 152 10^3/uL (150-450); RED BLOOD COUNT 4.09 10^6/uL (4.30-6.10); WHITE BLOOD COUNT 7.4 10^3/uL (4.0-10.0)
[2021-12-03] MEDS: BENAZEPRIL 5MG TAB PO SCH (09:00)
[2021-12-03] MEDS: LIDOCAINE 5% (LIDODERM) PATCH TD SCH (09:18)
[2021-12-03] MEDS: MULTIVITAMINS/MINERALS THERAP 1 TAB PO SCH (09:19)
[2021-12-03] MEDS: HumaLOG INSULIN (NovoLOG) PER UNIT SC SCH ×4 (09:19→20:32)
[2021-12-03] MEDS: cefTRIAXone SOD 2 GM in D5W MINI-BAG PLUS 50 ML IV SCH ×2 (09:19→20:33)
[2021-12-03] MEDS: ENOXAPARIN 40MG/0.4ML SYRINGE (J1650 PER 10MG) SC SCH (09:19)
[2021-12-03] MEDS: VITAMIN D 1,000 INTERNATIONAL UNITS TABLET PO SCH (09:20)
[2021-12-03] MEDS: DOCUSATE SODIUM 100MG CAPSULE PO SCH ×2 (09:20→20:32)
[2021-12-03] MEDS: ASCORBIC ACID 500 MG TAB PO SCH (09:20)
[2021-12-03] MEDS: OMEPRAZOLE 20MG CAP PO SCH ×2 (09:20→20:32)
[2021-12-03] MEDS: LORATADINE 10 MG TAB PO SCH (09:20)
[2021-12-03] MEDS: PERCOCET 5MG/325MG TAB PO PRN ×2 (09:30→20:38)
[2021-12-03] MEDS: SODIUM CHLORIDE 0.9% INJ 10 ML SYR IV PRN ×2 (10:54→21:05)
[2021-12-03 14:00] VITALS: BP 146/81
[2021-12-03 18:00] VITALS: BP 168/90
[2021-12-03] MEDS ORDERED: amLODIPine 5 MG TAB PO ONE (18:30)
[2021-12-03 19:00] VITALS: BP 154/76
[2021-12-03] MEDS: atenoloL 50 MG TAB PO SCH (20:31)
[2021-12-03] MEDS: DIGOXIN 0.25 MG TAB PO SCH (20:32)
[2021-12-03] MEDS: **NOTE PATIENT COMMENT** MISC XX SCH (20:38)
[2021-12-03 21:37] VITALS: BP 141/80
[2021-12-04] MEDS: ACETAMINOPHEN TAB 650MG DOSE (2X325MG) PO SCH ×4 (00:15→18:08)
[2021-12-04] MEDS: oxyCODONE 5MG TAB PO PRN ×2 (04:48→14:06)
[2021-12-04] MEDS: BENAZEPRIL 5MG TAB PO SCH (05:35)
[2021-12-04] MEDS: SODIUM CHLORIDE 0.9% INJ 10 ML SYR IV SCH ×2 (05:36→18:09)
[2021-12-04 05:53] VITALS: BP 170/90
[2021-12-04 06:48] LABS: HEMATOCRIT 38.3 % (42.0-52.0); HEMOGLOBIN 13.6 g/dl (13.5-17.5); MEAN CORPUSCULAR HGB CONC 35.5 g/dl (32.0-36.5); MEAN CORPUSCULAR VOLUME 90.1 fl (80.0-96.0); PLATELET COUNT, AUTOMATED 186 10^3/uL (150-450); RED BLOOD COUNT 4.25 10^6/uL (4.30-6.10); WHITE BLOOD COUNT 7.8 10^3/uL (4.0-10.0)
[2021-12-04 07:07] VITALS: BP 163/86
[2021-12-04 07:13] LABS: BLOOD UREA NITROGEN 14 MG/DL (7-18); C REACTIVE PROTEIN QUANTITATIV 7.93 MG/DL (0.00-0.30); CALCIUM LEVEL 8.6 MG/DL (8.8-10.2); CARBON DIOXIDE LEVEL 30 MEQ/L (21-32); CHLORIDE LEVEL 100 MEQ/L (98-107); CREATININE FOR GFR 0.92 MG/DL (0.70-1.30); ERYTHROCYTE SEDIMENTATION RATE 65 mm/hr (0-20); GLOMERULAR FILTRATION RATE > 60.0 (>49); GLUCOSE, FASTING 163 MG/DL (70-100); SODIUM LEVEL 135 MEQ/L (136-145)
[2021-12-04] MEDS ORDERED: CHLORTHALIDONE 12.5MG PER 1/2 TABLET PO SCH (09:00)
[2021-12-04] MEDS: HumaLOG INSULIN (NovoLOG) PER UNIT SC SCH ×4 (09:49→20:49)
[2021-12-04] MEDS: cefTRIAXone SOD 2 GM in D5W MINI-BAG PLUS 50 ML IV SCH ×2 (09:50→20:49)
[2021-12-04] MEDS: ENOXAPARIN 40MG/0.4ML SYRINGE (J1650 PER 10MG) SC SCH (09:50)
[2021-12-04] MEDS: LIDOCAINE 5% (LIDODERM) PATCH TD SCH (09:51)
[2021-12-04] MEDS: VITAMIN D 1,000 INTERNATIONAL UNITS TABLET PO SCH (09:51)
[2021-12-04] MEDS: DOCUSATE SODIUM 100MG CAPSULE PO SCH ×2 (09:51→20:47)
[2021-12-04] MEDS: OMEPRAZOLE 20MG CAP PO SCH ×2 (09:51→20:47)
[2021-12-04] MEDS: ASCORBIC ACID 500 MG TAB PO SCH (09:51)
[2021-12-04] MEDS: MULTIVITAMINS/MINERALS THERAP 1 TAB PO SCH (09:51)
[2021-12-04] MEDS: LORATADINE 10 MG TAB PO SCH (09:51)
[2021-12-04] MEDS ORDERED: PROHANCE 279.3MG/ML 15ML VIAL As Ordered ONE (12:41)
[2021-12-04] MEDS ORDERED: PROHANCE 279.3MG/ML 5ML VIAL As Ordered ONE (12:41)
[2021-12-04] MEDS: CYCLOBENZAPRINE 5MG TABLET PO PRN (14:05)
[2021-12-04 14:30] VITALS: BP 156/89
[2021-12-04] MEDS: PERCOCET 5MG/325MG TAB PO SCH ×2 (16:00→20:48)
[2021-12-04] MEDS: CYCLOBENZAPRINE 5MG TABLET PO SCH ×2 (16:00→20:47)
[2021-12-04 18:00] VITALS: BP 151/88
[2021-12-04] MEDS: DIGOXIN 0.25 MG TAB PO SCH (20:47)
[2021-12-04] MEDS: atenoloL 50 MG TAB PO SCH (20:49)
[2021-12-04] MEDS: **NOTE PATIENT COMMENT** MISC XX SCH (20:49)
[2021-12-05] MEDS: ACETAMINOPHEN TAB 650MG DOSE (2X325MG) PO SCH ×2 (00:21→06:47)
[2021-12-05] MEDS: oxyCODONE 5MG TAB PO PRN (04:16)
[2021-12-05 04:24] VITALS: BP 141/93
[2021-12-05] MEDS: SODIUM CHLORIDE 0.9% INJ 10 ML SYR IV SCH (05:03)
[2021-12-05 07:27] LABS: HEMATOCRIT 38.9 % (42.0-52.0); HEMOGLOBIN 13.4 g/dl (13.5-17.5); MEAN CORPUSCULAR HEMOGLOBIN 31.3 pg (27.0-33.0); MEAN CORPUSCULAR HGB CONC 34.4 g/dl (32.0-36.5); MEAN CORPUSCULAR VOLUME 90.9 fl (80.0-96.0); PLATELET COUNT, AUTOMATED 223 10^3/uL (150-450); RED BLOOD COUNT 4.28 10^6/uL (4.30-6.10); WHITE BLOOD COUNT 8.3 10^3/uL (4.0-10.0)
[2021-12-05 07:39] LABS: BLOOD UREA NITROGEN 16 MG/DL (7-18); CARBON DIOXIDE LEVEL 30 MEQ/L (21-32); CHLORIDE LEVEL 101 MEQ/L (98-107); CREATININE FOR GFR 1.03 MG/DL (0.70-1.30); GLOMERULAR FILTRATION RATE > 60.0 (>49); GLUCOSE, FASTING 184 MG/DL (70-100); POTASSIUM SERUM 4.2 MEQ/L (3.5-5.1); SODIUM LEVEL 135 MEQ/L (136-145)
[2021-12-05] MEDS: ASCORBIC ACID 500 MG TAB PO SCH (08:14)
[2021-12-05] MEDS: VITAMIN D 1,000 INTERNATIONAL UNITS TABLET PO SCH (08:14)
[2021-12-05] MEDS: MULTIVITAMINS/MINERALS THERAP 1 TAB PO SCH (08:14)
[2021-12-05] MEDS: PERCOCET 5MG/325MG TAB PO SCH (08:15)
[2021-12-05] MEDS: DOCUSATE SODIUM 100MG CAPSULE PO SCH (08:15)
[2021-12-05] MEDS: cefTRIAXone SOD 2 GM in D5W MINI-BAG PLUS 50 ML IV SCH (08:15)
[2021-12-05] MEDS: LORATADINE 10 MG TAB PO SCH (08:15)
[2021-12-05] MEDS: OMEPRAZOLE 20MG CAP PO SCH (08:15)
[2021-12-05] MEDS: ENOXAPARIN 40MG/0.4ML SYRINGE (J1650 PER 10MG) SC SCH (08:16)
[2021-12-05 08:18] VITALS: BP 149/74
[2021-12-05] MEDS: BENAZEPRIL 5MG TAB PO SCH (08:18)
[2021-12-05] MEDS: LIDOCAINE 5% (LIDODERM) PATCH TD SCH (08:18)
[2021-12-05] MEDS: HumaLOG INSULIN (NovoLOG) PER UNIT SC SCH (08:19)
[2021-12-05] MEDS: CYCLOBENZAPRINE 5MG TABLET PO SCH (08:22)
[2021-12-05] MEDS: SODIUM CHLORIDE 0.9% INJ 10 ML SYR IV PRN (08:23)
== END 2021-12-05 09:31 | disposition short-term general hospital (02) | DRG 720 ==
LOC: M ED 06:31 → M ED INP 14:48 → ENRESERV 23:46 → M MSPAV 11-28 00:54
PROVIDERS: ADMIT Internal Medicine; ATTEND Family Medicine
PROC: 02HV33Z Insertion of Infusion Device into Superior Vena Cava, Percutaneous Approach (ICD-10-PCS; principal; 2021-12-01 09:30)
DX: A40.9 Streptococcal sepsis, unspecified (principal); E87.2 Acidosis; D69.6 Thrombocytopenia, unspecified; E11.9 Type 2 diabetes mellitus without complications; I10 Essential (primary) hypertension; K21.9 Gastro-esophageal reflux disease without esophagitis; M46.46 Discitis, unspecified, lumbar region; Z96.641 Presence of right artificial hip joint; Z79.899 Other long term (current) drug therapy; Z88.0 Allergy status to penicillin; Z95.2 Presence of prosthetic heart valve; Z85.828 Personal history of other malignant neoplasm of skin; K59.00 Constipation, unspecified

== ENCOUNTER → 2021-12-18 | Outpatient (REF) | payer BC ==
[~2021-12-18] MED LIST changes: +CHLO125TA PO; +SPIR-10 PO; +VITA100093 PO; +VITMTA PO
[2021-12-18 14:09] LABS: HEMATOCRIT 36.1 % (42.0-52.0); HEMOGLOBIN 12.6 g/dl (13.5-17.5); MEAN CORPUSCULAR HEMOGLOBIN 31.6 pg (27.0-33.0); MEAN CORPUSCULAR HGB CONC 34.9 g/dl (32.0-36.5); MEAN CORPUSCULAR VOLUME 90.5 fl (80.0-96.0); PLATELET COUNT, AUTOMATED 212 10^3/uL (150-450); RED BLOOD COUNT 3.99 10^6/uL (4.30-6.10); WHITE BLOOD COUNT 6.3 10^3/uL (4.0-10.0)
[2021-12-18 14:50] LABS: ALBUMIN 3.1 GM/DL (3.2-5.2); ALT/SGPT 33 U/L (12-78); BILIRUBIN,TOTAL 0.2 MG/DL (0.2-1.0); BLOOD UREA NITROGEN 15 MG/DL (7-18); C REACTIVE PROTEIN QUANTITATIV 2.51 MG/DL (0.00-0.30); CALCIUM LEVEL 9.5 MG/DL (8.8-10.2); CARBON DIOXIDE LEVEL 28 MEQ/L (21-32); CHLORIDE LEVEL 100 MEQ/L (98-107); CREATININE FOR GFR 1.01 MG/DL (0.70-1.30); GLOMERULAR FILTRATION RATE > 60.0 (>49); GLUCOSE, FASTING 203 MG/DL (70-100); POTASSIUM SERUM 4.5 MEQ/L (3.5-5.1); SODIUM LEVEL 135 MEQ/L (136-145); TOTAL PROTEIN 8.2 GM/DL (6.4-8.2)
[2021-12-18 15:01] LABS: ERYTHROCYTE SEDIMENTATION RATE 73 mm/hr (0-20)
== END ==
LOC: M LAB REF 13:42
PROVIDERS: ATTEND Internal Medicine Infectious Disease
DX: M86.00 Acute hematogenous osteomyelitis, unspecified site (principal); M46.46 Discitis, unspecified, lumbar region; J13 Pneumonia due to Streptococcus pneumoniae; I10 Essential (primary) hypertension

== ENCOUNTER 2021-12-28 15:27 | Emergency (ER) | payer BC ==
[~2021-12-28] VITALS: Ht 188 cm; Wt 100.0 kg
[~2021-12-28 15:27] MED LIST changes: -BACL1TAB9 PO; -CYCL-707 PO; -METH-1165 PO; -OMEP-173 PO; -ONDA4TAB6 PO; -OXYC10TA12 PO; -OZEM2INJ; -PROHANCE 279.3MG/ML 15ML VIAL As Ordered ONE; -PROHANCE 279.3MG/ML 5ML VIAL As Ordered ONE
[2021-12-28] MEDS ORDERED: CYCL-707 PO (17:57)
[2021-12-28] MEDS ORDERED: OZEM2INJ (17:57)
[2021-12-28] MEDS ORDERED: OXYC10TA12 PO (17:57)
[2021-12-28] MEDS ORDERED: BACL1TAB9 PO (17:57)
[2021-12-28] MEDS ORDERED: OMEP-173 PO (17:57)
[2021-12-28 20:35] VITALS: BP 156/85
[2021-12-28] MEDS ORDERED: KETOROLAC 30 MG/ML 1ML VIAL IV ONE (20:35)
[2021-12-28] MEDS ORDERED: METHOCARBAMOL 1,000 MG/10 ML VIAL (J2800) IV ONE (20:35)
[2021-12-28] MEDS ORDERED: DIGOXIN 0.25 MG TAB PO ONE (20:35)
[2021-12-28] MEDS ORDERED: GABAPENTIN 300 MG CAP PO ONE (20:35)
[2021-12-28] MEDS ORDERED: atenoloL 50 MG TAB PO ONE (20:35)
[2021-12-28] MEDS ORDERED: cefTRIAXone SOD 2 GM in D5W MINI-BAG PLUS 50 ML IV ONE (20:35)
[2021-12-28] MEDS ORDERED: PERCOCET 5MG/325MG TAB PO ONE (20:40)
[2021-12-28] MEDS ORDERED: NS 1,000 ML IV ONE (20:45)
[2021-12-28] MEDS ORDERED: ONDANSETRON 4MG/2ML VIAL IV ONE (20:50)
[2021-12-28 21:49] LABS: BLOOD UREA NITROGEN 15 MG/DL (7-18); CALCIUM LEVEL 9.4 MG/DL (8.8-10.2); CARBON DIOXIDE LEVEL 30 MEQ/L (21-32); CHLORIDE LEVEL 100 MEQ/L (98-107); CREATININE FOR GFR 1.06 MG/DL (0.70-1.30); GLOMERULAR FILTRATION RATE > 60.0 (>49); GLUCOSE, FASTING 142 MG/DL (70-100); SODIUM LEVEL 138 MEQ/L (136-145)
[2021-12-28 22:30] VITALS: BP 136/76
[2021-12-28] MEDS ORDERED: METH-1165 PO (23:32)
[2021-12-28] MEDS ORDERED: ONDA4TAB6 PO (23:32)
== END 2021-12-28 23:48 | disposition home or self-care (01) ==
LOC: M ED 15:27
DX: G06.2 Extradural and subdural abscess, unspecified (principal); M54.50 Low back pain, unspecified; M46.40 Discitis, unspecified, site unspecified; E11.9 Type 2 diabetes mellitus without complications; K21.9 Gastro-esophageal reflux disease without esophagitis; Z88.0 Allergy status to penicillin; Z79.84 Long term (current) use of oral hypoglycemic drugs; Z79.899 Other long term (current) drug therapy
CPT/HCPCS: 80048; 96365; 96375; 99284; J0696; J1885; J2405; J2800

== ENCOUNTER → 2021-12-28 | Outpatient (CLI) | payer BC ==
[~2021-12-28] MED LIST changes: +BACL1TAB9 PO; +CYCL-707 PO; +METH-1165 PO; +OMEP-173 PO; +ONDA4TAB6 PO; +OXYC10TA12 PO; +OZEM2INJ; +PROHANCE 279.3MG/ML 15ML VIAL As Ordered ONE; +PROHANCE 279.3MG/ML 5ML VIAL As Ordered ONE
== END ==
LOC: M RAD 11:43
PROVIDERS: ATTEND Internal Medicine Infectious Disease
DX: G06.1 Intraspinal abscess and granuloma (principal); M86.9 Osteomyelitis, unspecified
CPT/HCPCS: 72158; A9576

== ENCOUNTER → 2022-01-01 | Outpatient (REF) | payer BC ==
[~2022-01-01] MED LIST changes: +BACL1TAB9 PO; +CYCL-707 PO; +METH-1165 PO; +OMEP-173 PO; +ONDA4TAB6 PO; +OXYC10TA12 PO; +OZEM2INJ
[2022-01-01 15:01] LABS: HEMATOCRIT 34.4 % (42.0-52.0); HEMOGLOBIN 11.9 g/dl (13.5-17.5); MEAN CORPUSCULAR HEMOGLOBIN 31.5 pg (27.0-33.0); MEAN CORPUSCULAR HGB CONC 34.6 g/dl (32.0-36.5); PLATELET COUNT, AUTOMATED 175 10^3/uL (150-450); RED BLOOD COUNT 3.78 10^6/uL (4.30-6.10); WHITE BLOOD COUNT 6.1 10^3/uL (4.0-10.0)
[2022-01-01 15:28] LABS: ALBUMIN 3.2 GM/DL (3.2-5.2); ALT/SGPT 45 U/L (12-78); BILIRUBIN,TOTAL 0.3 MG/DL (0.2-1.0); BLOOD UREA NITROGEN 15 MG/DL (7-18); C REACTIVE PROTEIN QUANTITATIV 1.21 MG/DL (0.00-0.30); CALCIUM LEVEL 9.5 MG/DL (8.8-10.2); CARBON DIOXIDE LEVEL 28 MEQ/L (21-32); CHLORIDE LEVEL 102 MEQ/L (98-107); CREATININE FOR GFR 0.88 MG/DL (0.70-1.30); GLOMERULAR FILTRATION RATE > 60.0 (>49); GLUCOSE, FASTING 246 MG/DL (70-100); POTASSIUM SERUM 4.2 MEQ/L (3.5-5.1); SODIUM LEVEL 136 MEQ/L (136-145); TOTAL PROTEIN 7.6 GM/DL (6.4-8.2)
[2022-01-01 15:50] LABS: ERYTHROCYTE SEDIMENTATION RATE 108 mm/hr (0-20)
[2022-01-02 14:53] LABS: IRON (FE) 62 UG/DL (65-175); PERCENT SATURATION 19.3 % (19.7-50.0); TOTAL IRON BINDING CAPACITY 321 UG/DL (250-450)
[2022-01-02 15:02] LABS: VITAMIN B12 LEVEL 406 PG/ML
[2022-01-02 15:03] LABS: FOLATE > 24.0 NG/ML
== END ==
LOC: M LAB REF 13:02
PROVIDERS: ATTEND Internal Medicine Infectious Disease
DX: M46.48 Discitis, unspecified, sacral and sacrococcygeal region (principal); M85.00 Fibrous dysplasia (monostotic), unspecified site; J13 Pneumonia due to Streptococcus pneumoniae; I10 Essential (primary) hypertension

== ENCOUNTER → 2022-01-08 | Outpatient (REF) | payer BC ==
[2022-01-08 14:23] LABS: HEMATOCRIT 34.5 % (42.0-52.0); HEMOGLOBIN 11.7 g/dl (13.5-17.5); MEAN CORPUSCULAR HEMOGLOBIN 31.1 pg (27.0-33.0); MEAN CORPUSCULAR HGB CONC 33.9 g/dl (32.0-36.5); MEAN CORPUSCULAR VOLUME 91.8 fl (80.0-96.0); PLATELET COUNT, AUTOMATED 162 10^3/uL (150-450); RED BLOOD COUNT 3.76 10^6/uL (4.30-6.10); WHITE BLOOD COUNT 5.4 10^3/uL (4.0-10.0)
[2022-01-08 14:51] LABS: ALBUMIN 3.1 GM/DL (3.2-5.2); ALT/SGPT 48 U/L (12-78); BILIRUBIN,TOTAL 0.3 MG/DL (0.2-1.0); BLOOD UREA NITROGEN 15 MG/DL (7-18); C REACTIVE PROTEIN QUANTITATIV 1.04 MG/DL (0.00-0.30); CALCIUM LEVEL 9.5 MG/DL (8.8-10.2); CARBON DIOXIDE LEVEL 26 MEQ/L (21-32); CHLORIDE LEVEL 102 MEQ/L (98-107); CREATININE FOR GFR 0.96 MG/DL (0.70-1.30); GLOMERULAR FILTRATION RATE > 60.0 (>49); GLUCOSE, FASTING 257 MG/DL (70-100); SODIUM LEVEL 136 MEQ/L (136-145); TOTAL PROTEIN 7.6 GM/DL (6.4-8.2)
[2022-01-08 14:58] LABS: ERYTHROCYTE SEDIMENTATION RATE 49 mm/hr (0-20)
== END ==
LOC: M LAB REF 13:37
PROVIDERS: ATTEND Internal Medicine Infectious Disease
DX: M86.00 Acute hematogenous osteomyelitis, unspecified site (principal); M46.46 Discitis, unspecified, lumbar region; J13 Pneumonia due to Streptococcus pneumoniae; I10 Essential (primary) hypertension

== ENCOUNTER → 2022-01-15 | Outpatient (REF) | payer BC ==
[2022-01-15 14:59] LABS: HEMATOCRIT 35.4 % (42.0-52.0); HEMOGLOBIN 12.1 g/dl (13.5-17.5); MEAN CORPUSCULAR HEMOGLOBIN 30.9 pg (27.0-33.0); MEAN CORPUSCULAR HGB CONC 34.2 g/dl (32.0-36.5); MEAN CORPUSCULAR VOLUME 90.5 fl (80.0-96.0); PLATELET COUNT, AUTOMATED 138 10^3/uL (150-450); RED BLOOD COUNT 3.91 10^6/uL (4.30-6.10); WHITE BLOOD COUNT 5.1 10^3/uL (4.0-10.0)
[2022-01-15 15:28] LABS: ALBUMIN 3.3 GM/DL (3.2-5.2); ALT/SGPT 53 U/L (12-78); BILIRUBIN,TOTAL 0.3 MG/DL (0.2-1.0); BLOOD UREA NITROGEN 18 MG/DL (7-18); C REACTIVE PROTEIN QUANTITATIV 0.99 MG/DL (0.00-0.30); CALCIUM LEVEL 9.3 MG/DL (8.8-10.2); CARBON DIOXIDE LEVEL 28 MEQ/L (21-32); CHLORIDE LEVEL 100 MEQ/L (98-107); GLOMERULAR FILTRATION RATE > 60.0 (>49); GLUCOSE, FASTING 286 MG/DL (70-100); POTASSIUM SERUM 4.1 MEQ/L (3.5-5.1); SODIUM LEVEL 135 MEQ/L (136-145); TOTAL PROTEIN 7.7 GM/DL (6.4-8.2)
[2022-01-15 16:16] LABS: ERYTHROCYTE SEDIMENTATION RATE 49 mm/hr (0-20)
== END ==
LOC: M LAB REF 14:39
PROVIDERS: ATTEND Internal Medicine Infectious Disease
DX: M86.00 Acute hematogenous osteomyelitis, unspecified site (principal); M46.46 Discitis, unspecified, lumbar region; J13 Pneumonia due to Streptococcus pneumoniae; I10 Essential (primary) hypertension

== ENCOUNTER → 2022-01-24 | Outpatient (REF) | payer BC ==
[2022-01-24 16:27] LABS: HEMATOCRIT 34.7 % (42.0-52.0); HEMOGLOBIN 12.1 g/dl (13.5-17.5); MEAN CORPUSCULAR HEMOGLOBIN 31.3 pg (27.0-33.0); MEAN CORPUSCULAR HGB CONC 34.9 g/dl (32.0-36.5); MEAN CORPUSCULAR VOLUME 89.7 fl (80.0-96.0); PLATELET COUNT, AUTOMATED 130 10^3/uL (150-450); RED BLOOD COUNT 3.87 10^6/uL (4.30-6.10); WHITE BLOOD COUNT 5.6 10^3/uL (4.0-10.0)
[2022-01-24 16:54] LABS: ALBUMIN 3.2 GM/DL (3.2-5.2); ALT/SGPT 55 U/L (12-78); BILIRUBIN,TOTAL 0.4 MG/DL (0.2-1.0); BLOOD UREA NITROGEN 18 MG/DL (7-18); C REACTIVE PROTEIN QUANTITATIV 0.77 MG/DL (0.00-0.30); CALCIUM LEVEL 9.4 MG/DL (8.8-10.2); CARBON DIOXIDE LEVEL 27 MEQ/L (21-32); CHLORIDE LEVEL 101 MEQ/L (98-107); CREATININE FOR GFR 1.21 MG/DL (0.70-1.30); GLOMERULAR FILTRATION RATE > 60.0 (>49); GLUCOSE, FASTING 305 MG/DL (70-100); POTASSIUM SERUM 4.3 MEQ/L (3.5-5.1); SODIUM LEVEL 136 MEQ/L (136-145); TOTAL PROTEIN 7.4 GM/DL (6.4-8.2)
[2022-01-24 17:49] LABS: ERYTHROCYTE SEDIMENTATION RATE 42 mm/hr (0-20)
== END ==
LOC: M LAB REF 15:39
PROVIDERS: ATTEND Internal Medicine Infectious Disease
DX: M86.00 Acute hematogenous osteomyelitis, unspecified site (principal); M46.46 Discitis, unspecified, lumbar region; J13 Pneumonia due to Streptococcus pneumoniae; I10 Essential (primary) hypertension

== ENCOUNTER → 2022-02-28 | Outpatient (REF) | payer BC ==
[2022-02-28 11:37] LABS: BASO % 0.6 % (0.0-1.0); EOS # 0.2 10^3/uL (0.0-0.5); EOS % 3.7 % (0.0-3.0); LYMPH # 2.5 10^3/uL (1.5-5.0); LYMPH % 45.3 % (24.0-44.0); MEAN CORPUSCULAR HGB CONC 34.2 g/dl (32.0-36.5); MEAN CORPUSCULAR VOLUME 93.6 fl (80.0-96.0); MONO # 0.6 10^3/uL (0.0-0.8); MONO % 10.7 % (2.0-8.0); NEUTROPHILS # 2.2 10^3/uL (1.5-8.5); NEUTROPHILS % 39.7 % (36.0-66.0); PLATELET COUNT, AUTOMATED 148 10^3/uL (150-450); RED BLOOD COUNT 4.06 10^6/uL (4.30-6.10); WHITE BLOOD COUNT 5.4 10^3/uL (4.0-10.0)
[2022-02-28 11:43] LABS: ALBUMIN 3.5 GM/DL (3.2-5.2); ALT/SGPT 54 U/L (12-78); BILIRUBIN,TOTAL 0.4 MG/DL (0.2-1.0); BLOOD UREA NITROGEN 21 MG/DL (7-18); C REACTIVE PROTEIN QUANTITATIV 0.43 MG/DL (0.00-0.30); CALCIUM LEVEL 9.7 MG/DL (8.8-10.2); CARBON DIOXIDE LEVEL 26 MEQ/L (21-32); CHLORIDE LEVEL 106 MEQ/L (98-107); CREATININE FOR GFR 1.21 MG/DL (0.70-1.30); GLOMERULAR FILTRATION RATE > 60.0 (>49); GLUCOSE, FASTING 252 MG/DL (70-100); POTASSIUM SERUM 4.4 MEQ/L (3.5-5.1); SODIUM LEVEL 138 MEQ/L (136-145); TOTAL PROTEIN 7.7 GM/DL (6.4-8.2)
[2022-02-28 11:58] LABS: ERYTHROCYTE SEDIMENTATION RATE 36 mm/hr (0-20)
== END ==
LOC: M SFHCCLAY 11:05
PROVIDERS: ATTEND Internal Medicine Infectious Disease
DX: G06.1 Intraspinal abscess and granuloma (principal)

== ENCOUNTER → 2022-07-06 | Outpatient (REF) | payer BC ==
[2022-07-06 11:55] LABS: BASO % 0.6 % (0.0-1.0); EOS # 0.3 10^3/uL (0.0-0.5); EOS % 4.1 % (0.0-3.0); HEMATOCRIT 38.8 % (42.0-52.0); HEMOGLOBIN 12.8 g/dl (13.5-17.5); LYMPH # 2.3 10^3/uL (1.5-5.0); LYMPH % 34.8 % (24.0-44.0); MEAN CORPUSCULAR HEMOGLOBIN 32.1 pg (27.0-33.0); MEAN CORPUSCULAR VOLUME 97.2 fl (80.0-96.0); MONO # 0.7 10^3/uL (0.0-0.8); MONO % 11.1 % (2.0-8.0); NEUTROPHILS # 3.3 10^3/uL (1.5-8.5); NEUTROPHILS % 49.2 % (36.0-66.0); PLATELET COUNT, AUTOMATED 141 10^3/uL (150-450); RED BLOOD COUNT 3.99 10^6/uL (4.30-6.10); WHITE BLOOD COUNT 6.7 10^3/uL (4.0-10.0)
[2022-07-06 12:53] LABS: ALBUMIN 3.8 GM/DL (3.2-5.2); BILIRUBIN,TOTAL 0.5 MG/DL (0.2-1.0); C REACTIVE PROTEIN QUANTITATIV 0.3 MG/DL (0.00-0.30); CALCIUM LEVEL 9.6 MG/DL (8.8-10.2); CHOLESTEROL RISK RATIO 2.39 (<5); CREATININE FOR GFR 1.4 MG/DL (0.70-1.30); GLOMERULAR FILTRATION RATE 54.3 (>49); MAU/CREAT RATIO 4.8 MCG/MG (0.0-30.0); POTASSIUM SERUM 4.6 MEQ/L (3.5-5.1); TOTAL PROTEIN 7.7 GM/DL (6.4-8.2)
[2022-07-06 13:02] LABS: ERYTHROCYTE SEDIMENTATION RATE 28 mm/hr (0-20)
[2022-07-06 15:38] LABS: HEMOGLOBIN A1c 6.6 %
== END ==
LOC: M SFHCCLAY 07:05
PROVIDERS: ATTEND Family Medicine
DX: I10 Essential (primary) hypertension (principal); I47.1 Supraventricular tachycardia; E78.2 Mixed hyperlipidemia; E11.9 Type 2 diabetes mellitus without complications; G06.1 Intraspinal abscess and granuloma

== ENCOUNTER → 2022-11-13 | Outpatient (REF) | payer MEDICARE ==
[2022-11-13 17:56] LABS: BASO % 0.4 % (0.0-1.0); EOS # 0.2 10^3/uL (0.0-0.5); EOS % 2.3 % (0.0-3.0); HEMATOCRIT 40.2 % (42.0-52.0); HEMOGLOBIN 13.2 g/dl (13.5-17.5); LYMPH # 2.2 10^3/uL (1.5-5.0); LYMPH % 32.9 % (24.0-44.0); MEAN CORPUSCULAR HEMOGLOBIN 31.4 pg (27.0-33.0); MEAN CORPUSCULAR HGB CONC 32.8 g/dl (32.0-36.5); MEAN CORPUSCULAR VOLUME 95.7 fl (80.0-96.0); MONO # 0.8 10^3/uL (0.0-0.8); MONO % 11.9 % (2.0-8.0); NEUTROPHILS # 3.6 10^3/uL (1.5-8.5); NEUTROPHILS % 52.4 % (36.0-66.0); PLATELET COUNT, AUTOMATED 167 10^3/uL (150-450); WHITE BLOOD COUNT 6.8 10^3/uL (4.0-10.0)
[2022-11-13 18:09] LABS: HEMOGLOBIN A1c 5.5 % (4.0-6.0)
[2022-11-13 18:32] LABS: CALCIUM LEVEL 9.2 MG/DL (8.3-10.6); CHOLESTEROL RISK RATIO 2.41 (<5); CREATININE FOR GFR 1.33 MG/DL (0.70-1.30); GLOMERULAR FILTRATION RATE 57.4 (>49); HDL CHOLESTEROL 38.1 MG/DL (>40); LDL CHOLESTEROL 21.3 MG/DL (<100); NON-HDL-C 53.9 MG/DL; POTASSIUM SERUM 4.4 MMOL/L (3.5-5.1)
== END ==
LOC: M SFHCCLAY 11:32
PROVIDERS: ATTEND Family Medicine
DX: I10 Essential (primary) hypertension (principal); D64.9 Anemia, unspecified; E78.2 Mixed hyperlipidemia; Z79.899 Other long term (current) drug therapy

== ENCOUNTER → 2023-07-12 | Outpatient (REF) | payer MEDICARE ==
[2023-07-12 12:49] LABS: BASO # 0.1 10^3/uL (0.0-0.2); BASO % 0.7 % (0.0-1.0); EOS # 0.4 10^3/uL (0.0-0.5); EOS % 5.6 % (0.0-3.0); HEMATOCRIT 39.2 % (42.0-52.0); HEMOGLOBIN 13.3 g/dl (13.5-17.5); LYMPH % 29.2 % (24.0-44.0); MEAN CORPUSCULAR HEMOGLOBIN 32.2 pg (27.0-33.0); MEAN CORPUSCULAR HGB CONC 33.9 g/dl (32.0-36.5); MEAN CORPUSCULAR VOLUME 94.9 fl (80.0-96.0); MONO # 0.9 10^3/uL (0.0-0.8); MONO % 12.4 % (2.0-8.0); NEUTROPHILS # 3.6 10^3/uL (1.5-8.5); NEUTROPHILS % 51.8 % (36.0-66.0); PLATELET COUNT, AUTOMATED 149 10^3/uL (150-450); RED BLOOD COUNT 4.13 10^6/uL (4.30-6.10); WHITE BLOOD COUNT 6.9 10^3/uL (4.0-10.0)
[2023-07-12 12:57] LABS: HEMOGLOBIN A1c 6.1 % (4.0-6.0)
[2023-07-12 13:02] LABS: ALBUMIN 4.4 G/DL (3.2-5.2); BILIRUBIN,TOTAL 0.8 MG/DL (0.3-1.2); CALCIUM LEVEL 9.4 MG/DL (8.3-10.6); CREATININE FOR GFR 1.47 MG/DL (0.70-1.30); GLOMERULAR FILTRATION RATE 51.2 (>49); POTASSIUM SERUM 4.7 MMOL/L (3.5-5.1); TOTAL PROTEIN 7.7 G/DL (5.7-8.2)
[2023-07-15 11:32] LABS: PERCENT SATURATION 27.5 % (19.7-50.0)
== END ==
LOC: M SFHCCLAY 08:41
PROVIDERS: ATTEND Family Medicine
DX: D61.818 Other pancytopenia (principal); I10 Essential (primary) hypertension; E11.9 Type 2 diabetes mellitus without complications; I49.9 Cardiac arrhythmia, unspecified; Z23 Encounter for immunization; Z79.899 Other long term (current) drug therapy

== ENCOUNTER → 2023-07-14 | Outpatient (REF) | payer MEDICARE | LOC: M SFHCCLAY 21:36 | PROVIDERS: ATTEND Family Medicine | DX: Z53.9 Procedure and treatment not carried out, unspecified reason (principal) ==

== ENCOUNTER → 2023-08-16 | Outpatient (REF) | payer MEDICARE ==
[2023-08-16 18:06] LABS: CREATININE FOR GFR 1.42 MG/DL (0.70-1.30); GLOMERULAR FILTRATION RATE 53.3 (>49); POTASSIUM SERUM 4.8 MMOL/L (3.5-5.1)
== END ==
LOC: M SFHCCLAY 09:19
PROVIDERS: ATTEND Family Medicine
DX: I10 Essential (primary) hypertension (principal)

== ENCOUNTER → 2023-10-24 | Outpatient (CLI) | payer MEDICARE | LOC: M PLAIMG 08:07 | PROVIDERS: ATTEND Physician Assistant | DX: I35.1 Nonrheumatic aortic (valve) insufficiency (principal); I77.810 Thoracic aortic ectasia ==

== ENCOUNTER → 2024-01-10 | Outpatient (REF) | payer MEDICARE ==
[~2024-01-10] MED LIST changes: -GARL500C2 PO; +GARL500C6 PO
[2024-01-10 12:16] LABS: BLOOD UREA NITROGEN 23 MG/DL (9-23); CALCIUM LEVEL 9.5 MG/DL (8.3-10.6); CARBON DIOXIDE LEVEL 29 MMOL/L (20-31); CHLORIDE LEVEL 101 MMOL/L (98-107); CHOLESTEROL LEVEL 137 MG/DL (<200); CHOLESTEROL RISK RATIO 3.92 (<5); CREATININE FOR GFR 1.37 MG/DL (0.70-1.30); GLOMERULAR FILTRATION RATE 55.3 (>49); GLUCOSE, FASTING 152 MG/DL (74-106); HDL CHOLESTEROL 34.9 MG/DL (>40); IRON (FE) 71 UG/DL (65-175); NON-HDL-C 102.1 MG/DL; POTASSIUM SERUM 4.5 MMOL/L (3.5-5.1); SODIUM LEVEL 139 MMOL/L (136-145); TRIGLYCERIDES LEVEL 485 MG/DL (<150)
[2024-01-10 12:17] LABS: PERCENT SATURATION 20.3 % (19.7-50.0); TOTAL IRON BINDING CAPACITY 350 UG/DL (250-425)
[2024-01-10 12:18] LABS: VITAMIN B12 LEVEL 371 PG/ML (211-911)
[2024-01-10 12:25] LABS: HEMOGLOBIN A1c 6.7 % (4.0-6.0)
== END ==
LOC: M SFHCCLAY 07:47
PROVIDERS: ATTEND Family Medicine
DX: E11.9 Type 2 diabetes mellitus without complications (principal); D61.818 Other pancytopenia; E78.2 Mixed hyperlipidemia

== ENCOUNTER 2024-03-24 08:51 | Day surgery (SDC) | payer MEDICARE ==
[~2024-03-24] VITALS: Ht 188 cm; Wt 96.1 kg
[~2024-03-24 08:51] MED LIST changes: +APPL300T4 PO; +GABA-282 PO; +ONDA-282 PO; -ONDA4TAB6 PO; +ROSU5TAB40 PO; +THERTAB52 PO
[2024-03-24] MEDS: NS 1,000 ML IV SCH (09:13)
[2024-03-24] MEDS ORDERED: propofoL 200 MG/20 ML VIAL As Ordered ONE (10:21)
[2024-03-24] MEDS ORDERED: LIDOCAINE 2% 100MG/5ML SDV (FOR ANES.) As Ordered ONE (10:21)
[2024-03-24 11:15] VITALS: BP 143/76; TEMP 97.7; O2SAT 98
== END 2024-03-24 11:25 | disposition home or self-care (01) ==
LOC: M OPP 08:51
PROVIDERS: ATTEND Internal Medicine Gastroenterology
DX: Z86.010 Personal history of colon polyps (principal); D12.8 Benign neoplasm of rectum; K64.8 Other hemorrhoids; K57.30 Diverticulosis of large intestine without perforation or abscess without bleeding; E11.9 Type 2 diabetes mellitus without complications; I10 Essential (primary) hypertension; Z79.84 Long term (current) use of oral hypoglycemic drugs; Z79.891 Long term (current) use of opiate analgesic; Z79.899 Other long term (current) drug therapy; Z88.0 Allergy status to penicillin

== ENCOUNTER → 2024-04-15 | Outpatient (REF) | payer MEDICARE ==
[2024-04-15 12:08] LABS: ALBUMIN 4.1 G/DL (3.2-5.2); ALKALINE PHOSPHATASE 108 U/L (46-116); ALT/SGPT 22 U/L (7.0-40); AST/SGOT 38 U/L (<34); BILIRUBIN,DIRECT < 0.1 MG/DL (<0.4); BILIRUBIN,TOTAL 0.3 MG/DL (0.3-1.2); MAGNESIUM LEVEL 1.6 MG/DL (1.8-2.4); TOTAL PROTEIN 7.5 G/DL (5.7-8.2)
== END ==
LOC: M LABDRAWC 10:50
PROVIDERS: ATTEND Physician Assistant
DX: E78.00 Pure hypercholesterolemia, unspecified (principal); I47.10 Supraventricular tachycardia, unspecified

== ENCOUNTER → 2024-06-11 | Outpatient (REF) | payer MEDICARE ==
[~2024-06-11] MED LIST changes: +GABA-1172 PO; -GABA-282 PO
[2024-06-11 12:06] LABS: BASO # 0.1 10^3/uL (0.0-0.2); BASO % 0.8 % (0.0-1.0); EOS # 0.6 10^3/uL (0.0-0.5); EOS % 10.2 % (0.0-3.0); HEMATOCRIT 39.3 % (42.0-52.0); HEMOGLOBIN 13.5 g/dl (13.5-17.5); LYMPH # 2.3 10^3/uL (1.5-5.0); LYMPH % 37.8 % (24.0-44.0); MEAN CORPUSCULAR HEMOGLOBIN 31.9 pg (27.0-33.0); MEAN CORPUSCULAR HGB CONC 34.4 g/dl (32.0-36.5); MEAN CORPUSCULAR VOLUME 92.9 fl (80.0-96.0); MONO # 0.6 10^3/uL (0.0-0.8); MONO % 10.5 % (2.0-8.0); NEUTROPHILS # 2.4 10^3/uL (1.5-8.5); NEUTROPHILS % 40.5 % (36.0-66.0); PLATELET COUNT, AUTOMATED 139 10^3/uL (150-450); RED BLOOD COUNT 4.23 10^6/uL (4.30-6.10)
[2024-06-11 13:36] LABS: CALCIUM LEVEL 9.9 MG/DL (8.3-10.6); CREATININE FOR GFR 1.41 MG/DL (0.70-1.30); GLOMERULAR FILTRATION RATE 53.5 (>49); POTASSIUM SERUM 4.6 MMOL/L (3.5-5.1)
[2024-06-11 14:06] LABS: HEMOGLOBIN A1c 8.3 % (4.0-6.0)
== END ==
LOC: M SFHCCLAY 07:42
PROVIDERS: ATTEND Family Medicine
DX: E11.9 Type 2 diabetes mellitus without complications (principal); Z23 Encounter for immunization; D61.818 Other pancytopenia; I10 Essential (primary) hypertension

== ENCOUNTER → 2024-09-29 | Outpatient (REF) | payer MEDICARE ==
[~2024-09-29] MED LIST changes: -ROSU5TAB40 PO; +ROSU5TAB49 PO
[2024-09-29 15:00] LABS: BASO # 0.1 10^3/uL (0.0-0.2); BASO % 0.9 % (0.0-1.0); EOS # 0.6 10^3/uL (0.0-0.5); EOS % 9.8 % (0.0-3.0); HEMATOCRIT 41.3 % (42.0-52.0); HEMOGLOBIN 13.6 g/dl (13.5-17.5); LYMPH # 1.5 10^3/uL (1.5-5.0); LYMPH % 25.3 % (24.0-44.0); MEAN CORPUSCULAR HEMOGLOBIN 30.4 pg (27.0-33.0); MEAN CORPUSCULAR HGB CONC 32.9 g/dl (32.0-36.5); MEAN CORPUSCULAR VOLUME 92.2 fl (80.0-96.0); MONO # 0.6 10^3/uL (0.0-0.8); MONO % 10.6 % (2.0-8.0); NEUTROPHILS # 3.1 10^3/uL (1.5-8.5); NEUTROPHILS % 53.1 % (36.0-66.0); PLATELET COUNT, AUTOMATED 157 10^3/uL (150-450); RED BLOOD COUNT 4.48 10^6/uL (4.30-6.10); WHITE BLOOD COUNT 5.8 10^3/uL (4.0-10.0)
[2024-09-29 15:26] LABS: CREATININE, URINE 230.2 MG/DL
[2024-09-29 15:27] LABS: MAU/CREAT RATIO 33.8 MCG/MG (0.0-30.0)
[2024-09-29 15:29] LABS: PSA SCREENING 3.57 NG/ML (< 4.00)
[2024-09-29 15:30] LABS: THYROID STIMULATING HORMONE 0.522 uIU/ML (0.55-4.78)
[2024-09-29 15:31] LABS: FREE T4 1.23 NG/DL (0.89-1.76)
[2024-09-29 15:33] LABS: ALBUMIN 4.1 G/DL (3.2-5.2); ALKALINE PHOSPHATASE 108 U/L (40-129); ALT/SGPT 21 U/L (7.0-40); AST/SGOT 50 U/L (<34); BILIRUBIN,TOTAL 0.5 MG/DL (0.3-1.2); BLOOD UREA NITROGEN 26 MG/DL (9-23); CALCIUM LEVEL 9.7 MG/DL (8.3-10.6); CARBON DIOXIDE LEVEL 28 MMOL/L (20-31); CHLORIDE LEVEL 102 MMOL/L (98-107); CHOLESTEROL LEVEL 118 MG/DL (<200); CHOLESTEROL RISK RATIO 3.04 (<5); CREATININE FOR GFR 1.58 MG/DL (0.70-1.30); GLOMERULAR FILTRATION RATE 46.9 (>49); GLUCOSE, FASTING 217 MG/DL (74-106); HDL CHOLESTEROL 38.8 MG/DL (>40); NON-HDL-C 79.2 MG/DL; POTASSIUM SERUM 4.5 MMOL/L (3.5-5.1); SODIUM LEVEL 138 MMOL/L (136-145); TOTAL PROTEIN 7.8 G/DL (5.7-8.2); TRIGLYCERIDES LEVEL 418 MG/DL (<150)
[2024-09-29 15:35] LABS: DIGOXIN LEVEL 1.1 NG/ML (0.8-2.0)
[2024-09-29 15:55] LABS: HEMOGLOBIN A1c 8.4 % (4.0-6.0)
== END ==
LOC: M SFHCCLAY 10:00
PROVIDERS: ATTEND Nurse Practitioner Family
DX: E11.9 Type 2 diabetes mellitus without complications (principal); I10 Essential (primary) hypertension; E78.2 Mixed hyperlipidemia; Z12.5 Encounter for screening for malignant neoplasm of prostate; D61.818 Other pancytopenia; Z79.899 Other long term (current) drug therapy
CPT/HCPCS: 80053; 80061; 80162; 82043; 83036; 84439; 84443; 85025; G0103

== ENCOUNTER → 2025-06-14 | Outpatient (REF) | payer MEDICARE ==
[2025-06-14 13:33] LABS: BASO # 0.1 10^3/uL (0.0-0.2); BASO % 0.9 % (0.0-1.0); EOS # 0.5 10^3/uL (0.0-0.5); EOS % 8.7 % (0.0-3.0); LYMPH # 1.6 10^3/uL (1.5-5.0); LYMPH % 29.5 % (24.0-44.0); MONO # 0.7 10^3/uL (0.0-0.8); MONO % 12.5 % (2.0-8.0); NEUTROPHILS # 2.7 10^3/uL (1.5-8.5); NEUTROPHILS % 48.2 % (36.0-66.0); PLATELET COUNT, AUTOMATED 145 10^3/uL (150-450)
[2025-06-14 13:34] LABS: ALT/SGPT 26.0 U/L (7.0-40); AST/SGOT 53.0 U/L (<34); CALCIUM LEVEL 9.2 MG/DL (8.3-10.6); CARBON DIOXIDE LEVEL 29.0 MMOL/L (20-31); CHLORIDE LEVEL 100.0 MMOL/L (98-107); CHOLESTEROL LEVEL 130.0 MG/DL (<200); CHOLESTEROL RISK RATIO 3.29 (<5); CREATININE FOR GFR 1.29 MG/DL (0.70-1.30); GLOMERULAR FILTRATION RATE 60.8 (>49); LDL CHOLESTEROL 36.1 MG/DL (<100); MAGNESIUM LEVEL 1.7 MG/DL (1.8-2.4); NON-HDL-C 90.5 MG/DL; POTASSIUM SERUM 4.4 MMOL/L (3.5-5.1); PSA SCREENING 4.21 NG/ML (< 4.00); SODIUM LEVEL 140.0 MMOL/L (136-145); TRIGLYCERIDES LEVEL 272.0 MG/DL (<150)
[2025-06-14 13:38] LABS: FREE T4 1.16 NG/DL (0.89-1.76)
[2025-06-14 13:54] LABS: ESTIMATED AVERAGE GLUCOSE 235.0 MG/DL (60-110)
== END ==
LOC: M SFHCCLAY 08:11
PROVIDERS: ATTEND Nurse Practitioner Family
DX: I10 Essential (primary) hypertension (principal); E11.9 Type 2 diabetes mellitus without complications; E78.2 Mixed hyperlipidemia; D64.9 Anemia, unspecified; Z12.5 Encounter for screening for malignant neoplasm of prostate
CPT/HCPCS: 80053; 80061; 83036; 83735; 84439; 84443; 85025; G0103